=== PATIENT | female | born 1960 | race Caucasian/White ===

== ENCOUNTER 2019-10-09 16:20 | Emergency (ER) | payer OTHER ==
[~2019-10-09] VITALS: Ht 157.5 cm; Wt 88.0 kg
[~2019-10-09 16:20] MED LIST: AMBIEN CR12.5 MG; DIAZEPAM 2MG TAB2 MG OR; PRILOSEC40 MG
[2019-10-09 17:33] LABS: INFLUENZA A ANTIGEN Positive (Negative); INFLUENZA B ANTIGEN Negative (Negative)
[2019-10-09] MEDS ORDERED: TAMIFLU75 MG PO (17:42)
[2019-10-09] MEDS ORDERED: ONDANSETRON HCL4 M2 PO (17:42)
[2019-10-09 17:52] VITALS: BP 133/86
== END 2019-10-09 17:53 | disposition home or self-care (01) ==
LOC: M.ERS 16:20
PROVIDERS: Physician Assistant
DX: J10.1 Influenza due to other identified influenza virus with other respiratory manifestations (principal); Z98.890 Other specified postprocedural states

== ENCOUNTER 2020-10-22 19:06 | Emergency (ER) | payer OTHER ==
[~2020-10-22] VITALS: Ht 157.5 cm; Wt 90.7 kg
[~2020-10-22 19:06] MED LIST changes: +ONDANSETRON HCL4 M2 PO; +TAMIFLU75 MG PO
[2020-10-22] MEDS ORDERED: AUGMENTIN 875-1 EACH PO (20:13)
[2020-10-22] MEDS ORDERED: APAP W/CODEINE1 TA2 PO (20:13)
[2020-10-22] MEDS ORDERED: MECLIZINE HCL25 MG PO (20:36)
[2020-10-22] MEDS ORDERED: TRANSDERM-SCOP1 EACH TRANSDERM (20:36)
[2020-10-22 20:44] VITALS: BP 158/93
== END 2020-10-22 20:44 | disposition home or self-care (01) ==
LOC: M.ERS 19:06
DX: S51.812A Laceration without foreign body of left forearm, initial encounter (principal); R42 Dizziness and giddiness; Z98.890 Other specified postprocedural states; W54.1XXA Struck by dog, initial encounter; Y93.89 Activity, other specified; Y92.89 Other specified places as the place of occurrence of the external cause; Y99.8 Other external cause status